=== PATIENT | female | born 1990 | race Hispanic/Latino ===

== ENCOUNTER 2017-02-17 09:54 | Emergency (ER) | payer OTHER ==
[2017-02-17 10:00] VITALS: TEMP 100; O2SAT 100; BMI 22.1
[2017-02-17] MEDS ORDERED: ceFAZolin 1 GM in Sodium Chloride 0.9% 100 ML IVPB ONE (10:41)
--- NOTE | 2017-02-17 10:55 | ED PDOC ---
Upper Extremity Pain/Injury Time Seen by Provider: 02/17/17 10:00 Chief Complaint (Nursing): Finger,Hand,&Wrist Chief Complaint (Provider): Left thumb History Per: Patient History/Exam Limitations: no limitations Onset/Duration Of Symptoms: Hrs Current Symptoms Are (Timing): Still Present Additional Complaint(s): 26 y/o female, right handed, who presents to the emergency department with a complaint of a left thumb injury after she slammed her finger into car door around 1:30 am. Reports she visited [facility] this morning who advised to come to the emergency department after given Percocet for relief of pain, took pill about 10 minutes prior to arrival. Denies any further medical complaints. Tetanus NOT up to date. Past Medical History Reviewed: Historical Data, Nursing Documentation, Vital Signs Vital Signs: Last Vital Signs Temp 100 F H 02/17/17 09:59 Pulse 74 02/17/17 09:59 Resp 16 02/17/17 09:59 BP 108/74 02/17/17 09:59 Pulse Ox 100 02/17/17 09:59 - Medical History PMH: Asthma - Family History Family History: States: No Known Family Hx - Immunization History Hx Tetanus Toxoid Vaccination: No Hx Influenza Vaccination: No - Home Medications Home Medications: Ambulatory Orders Medication Instructions Recorded Clindamycin [Cleocin] 1 tab PO QID #20 cap 02/17/17 Naproxen 1 tab PO Q12 PRN #14 tab 02/17/17 oxyCODONE/Acetaminophen [Percocet 1 ea PO Q6 PRN #15 tab 02/17/17 5/325 mg Tab] - Allergies Allergies/Adverse Reactions: Allergies Allergy/AdvReac Type Severity Reaction Status Date / Time Penicillins Allergy RASH Verified 02/17/17 10:10 Review of Systems ROS Statement: Except As Marked, All Systems Reviewed And Found Negative Musculoskeletal: Positive for: Hand Pain (Left thumb injury) Physical Exam - Reviewed Nursing Documentation Reviewed: Yes Vital Signs Reviewed: Yes - Physical Exam Appears: Positive for: Non-toxic, No Acute Distress Head Exam: Positive for: ATRAUMATIC, NORMAL INSPECTION, NORMOCEPHALIC Skin: Positive for: Normal Color, Warm, Dry Neck: Positive for: Normal, Supple Extremity: Positive for: Normal ROM (able to flex and extend at DIP and PIP with pain ), Other (Deep 2cm laceration noted with anterior displacement at nail bed distal to DIP , with anterior displacement at nail bed ) Neurologic/Psych: Positive for: Alert, Oriented (x3) - Laboratory Results Result Diagrams: 02/17/17 11:20 02/17/17 11:20 - ECG O2 Sat by Pulse Oximetry: 100 (RA) Pulse Ox Interpretation: Normal - Progress ED Course And Treament: CLINDAMYCIN 600MG IV X 1 DOSE TDAP 0.5ML IM X 1 DOSE D/W DR. THOMAS LEE. WILL REFER CASE TO DR. TOMPKINS D/W DR. TOMPKINS SEEN BY HIM IN ED 14:30 FOR REPAIR OF LACERATION Medical Decision Making Medical Decision Making: Time: 10:00 Initial impression: Left thumb injury Initial plan: --Type and screen --BMP --CBC w/ diff --Ancef 1 gm IV --Tetanus 0.5 ml IM --Hand Left Thumb X-ray --Reevaluation Time: 11:01 --Clindamycin 600 mg IV Time: 13:06 --Hand X-ray FINDINGS: BONES: There is a displaced comminuted fracture through the 1st distal phalanx. . This does not involve the articular surface. There is no dislocation JOINTS: Normal. No osteoarthritic changes. SOFT TISSUES: Normal. OTHER FINDINGS: None. IMPRESSION: There is a displaced comminuted fracture through the 1st distal phalanx. . This does not involve the articular surface. There is no dislocation Time: 14:39 --Xylocaine 2% w/ epi 1 mL IJ Scribe Attestation: Documented by Nancy Sheets, acting as a scribe for Jeaine gregory PA-C. Provider Scribe Attestation: All medical record entries made by the Scribe were at my direction and personally dictated by me. I have reviewed the chart and agree that the record accurately reflects my personal performance of the history, physical exam, medical decision making, and the department course for this patient. I have also personally directed, reviewed, and agree with the discharge instructions and disposition. Disposition - Clinical Impression Clinical Impression: Finger injury - Patient ED Disposition Is Patient to be Admitted: No - Disposition Referrals: Sean Tompkins MD [Staff Provider] - Disposition: Routine/Home Disposition Time: 15:07 Condition: FAIR Additional Instructions: FOLLOW UP ON SATURDAY WITH DR. TOMPKINS FOR FURTHER EVALATUION Prescriptions: Clindamycin [Cleocin] 1 tab PO QID #20 cap Naproxen 1 tab PO Q12 PRN #14 tab PRN Reason: Pain, Moderate (4-7) oxyCODONE/Acetaminophen [Percocet 5/325 mg Tab] 1 ea PO Q6 PRN #15 tab PRN Reason: Pain, Severe (8-10) Instructions: Finger Fracture (ED), Finger Laceration (ED) Forms: [facility] ([facility]), [facility] ED School/Work Excuse
[2017-02-17] MEDS ORDERED: Clindamycin 600 MG in Sodium Chloride 0.9% 100 ML IVPB ONE (11:01)
[2017-02-17 11:43] LABS: BLOOD UREA NITROGEN 12 mg/dl (7-17); CALCIUM 9.5 mg/dL (8.4-10.2); CARBON DIOXIDE 22 mmol/L (22-30); CHLORIDE 104 mmol/L (98-107); GFR AFRICAN-AMERICAN > 60; GLUCOSE,RANDOM 83 mg/dL (65-105); SODIUM 137 mmol/l (132-148)
[2017-02-17 11:52] LABS: BASO # 0.1 K/uL (0.0-0.2); BASO % 1.3 % (0.0-2.0); EOS % 0.1 % (0.0-4.0); HEMATOCRIT 40.3 % (34.0-47.0); LYMPH # 1.8 K/uL (1.0-4.3); LYMPH % 28.1 % (20.0-40.0); MEAN CELL VOLUME 94.2 fl (81.0-99.0); MEAN CORPUSCULAR HEMOGLOBIN 31.6 pg (27.0-31.0); MEAN CORPUSCULAR HGB CONC 33.5 g/dL (33.0-37.0); MEAN PLATELET VOLUME 9.9 fl (7.2-11.7); MONO # 0.3 K/uL (0.0-0.8); MONO % 4.9 % (0.0-10.0); NEUT # 4.1 K/uL (1.8-7.0); NEUT % 65.6 % (50.0-75.0); NRBC % 0.2 % (0.0-0.0); RED CELL DISTRIBUTION WIDTH 12.7 % (11.5-14.5); WHITE BLOOD COUNT 6.3 K/uL (4.8-10.8)
[2017-02-17 11:56] LABS: POTASSIUM 4.9 MMOL/L (3.6-5.0)
--- NOTE | 2017-02-17 13:07 | RAD ---
PROCEDURE: Left Hand and thumb Radiographs. HISTORY: thumb injury COMPARISON: None. FINDINGS: BONES: There is a displaced comminuted fracture through the 1st distal phalanx. . This does not involve the articular surface. There is no dislocation JOINTS: Normal. No osteoarthritic changes. SOFT TISSUES: Normal. OTHER FINDINGS: None. IMPRESSION: There is a displaced comminuted fracture through the 1st distal phalanx. . This does not involve the articular surface. There is no dislocation
[2017-02-17] MEDS ORDERED: Oxycodone/Acetaminophen 5/325 mg Tab PO ONE (13:12)
[2017-02-17] MEDS ORDERED: Oxycodone/Acetaminophen 5/325 mg Tab ONE (13:14)
[2017-02-17] MEDS ORDERED: Lidocaine 2% Inj (20ml) IJ ONE (13:57)
[2017-02-17] MEDS ORDERED: Lidocaine 2% w Epi 1:100,000 Inj IJ ONE ×2 (14:37→14:39)
[2017-02-17] MEDS ORDERED: Povidone Iodine Topical 10% Sol ONE (14:52)
[2017-02-17 15:37] VITALS: BP 120/65; PULSE 82; RESP 18
== END 2017-02-17 15:37 | disposition home or self-care (01) ==
LOC: H.ER 09:54
DX: S61.012A Laceration without foreign body of left thumb without damage to nail, initial encounter (principal); W23.0XXA Caught, crushed, jammed, or pinched between moving objects, initial encounter; Y92.89 Other specified places as the place of occurrence of the external cause; Z88.0 Allergy status to penicillin